=== PATIENT | male | born 1965 | race Caucasian/White ===

== ENCOUNTER 2023-05-14 18:26 | Observation (INO) | payer OTHER ==
[2023-05-14] MEDS ORDERED: ONDANSETRON 4 MG/2 ML VIAL IVP STA ×2 (18:32→20:50)
[2023-05-14] MEDS ORDERED: KETOROLAC 15 MG/ML 1 ML VIAL IVP STA (18:32)
[2023-05-14] MEDS ORDERED: SODIUM CHLORIDE 0.9% 1,000 ML IV STA (18:32)
--- NOTE | 2023-05-14 18:33 | ED ---
Abdominal Pain HPI - General Source: patient Mode of arrival: ambulatory <Sawyer Doan - Last Filed: 05/14/23 18:33> - General Source: RN notes reviewed, old records reviewed <Balta Collins - Last Filed: 05/14/23 21:09> <Chin Matthews John - Last Filed: 05/14/23 23:42> - General Chief Complaint: Abdominal Pain Stated Complaint: Back pain Time Seen by Provider: 05/14/23 18:32 - History of Present Illness Initial Comments: 57-year-old male presents to the ED with a chief complaint of back pain. She states today he started to experience pain of his left back radiating to the front of his abdomen. Denies injury or trauma. Denies urinary symptoms however patient notes history of kidney stones and reports pain seems similar to stones in the past. (Sawyer Doan) This is a 57-year-old male who presents emergency Department with a past medical history significant for kidney stones. Patient states she's had about 5 hours of left CVA tenderness. Patient states he went to another emergency department with the wait was too long so he came to our emergency department. Patient states earlier radiated around to the front of the abdomen but is now just in the back. Patient denies any fever chills per patient denies any vomiting but was nauseous earlier but no longer is nauseated. Patient denies any diarrhea patient denies chest pain difficult breathing shortness of breath (Balta Collins) - Related Data Home Medications Medication Instructions Recorded Confirmed atenoloL [Tenormin] 100 mg PO DAILY 02/25/14 02/28/14 Previous Rx's Medication Instructions Recorded HYDROcodone/APAP 7.5-325MG [[place] 1 each PO Q4H PRN #60 tab 02/28/14 7.5] Allergies Allergy/AdvReac Type Severity Reaction Status Date / Time No Known Allergies Allergy Verified 05/14/23 18:31 Review of Systems ROS Other: All systems not noted in ROS Statement are negative. <Sawyer Doan - Last Filed: 05/14/23 18:33> ROS Other: All systems not noted in ROS Statement are negative. <Balta Collins - Last Filed: 05/14/23 21:09> ROS Other: All systems not noted in ROS Statement are negative. <Chin Matthews - Last Filed: 05/14/23 23:42> ROS Statement: Those systems with pertinent positive or pertinent negative responses have been documented in the HPI. Past Medical History Past Medical History: Hypertension History of Any Multi-Drug Resistant Organisms: None Reported Past Surgical History: Cholecystectomy Additional Past Surgical History / Comment(s): colonoscopies and hemorroid surgery, lithotripsy Past Anesthesia/Blood Transfusion Reactions: No Reported Reaction Past Psychological History: No Psychological Hx Reported Past Alcohol Use History: Occasional Past Drug Use History: None Reported <Sawyer Doan - Last Filed: 05/14/23 18:33> General Exam <Sawyer Doan - Last Filed: 05/14/23 18:33> <Balta Collins - Last Filed: 05/14/23 21:09> - General Exam Comments Initial Comments: Visual Physical Exam Vital signs reviewed General: Well-appearing, nontoxic, no acute distress. Head: Normocephalic, atraumatic Eyes: PERRLA, EOMI ENT: Airway patent Chest: Nonlabored breathing Skin: No visual rash, normal skin tone Neuro: Alert and oriented 3 Musculoskeletal: No gross abnormalities (Sawyer Doan) GENERAL: Patient is well-developed and well-nourished. Patient is nontoxic and well-hydr ated and is moderate distress. ENT: Neck is soft and supple. No significant lymphadenopathy is noted. Oropharynx is clear. Moist mucous membranes. Neck has full range of motion without eliciting any pain. EYES: The sclera were anicteric and conjunctiva were pink and moist. Extraocular movements were intact and pupils were equal round and reactive to light. Eyelids were unremarkable. PULMONARY: Unlabored respirations. Good breath sounds bilaterally. No audible rales rhonchi or wheezing was noted. CARDIOVASCULAR: There is a regular rate and rhythm without any murmurs gallops or rubs. ABDOMEN: Soft and nontender with normal bowel sounds. SKIN: Skin is clear with no lesions or rashes and otherwise unremarkable. NEUROLOGIC: Patient is alert and oriented x3. Cranial nerves II through XII are grossly intact. Motor and sensory are also intact. Normal speech, volume and content. Symmetrical smile. Cerebellar exam grossly intact. MUSCULOSKELETAL: Normal extremities with adequate strength and full range of motion. Patient has left-sided CVA tenderness LYMPHATICS: No significant lymphadenopathy is noted PSYCHIATRIC: Normal psychiatric evaluation. (Balta Collins) Course Vital Signs 05/14/23 18:28 Temperature 98.4 F Pulse Rate 84 Respiratory 18 Rate Blood Pressure 145/95 O2 Sat by Pulse 97 Oximetry Medical Decision Making <Sawyer Doan - Last Filed: 05/14/23 18:33> - Lab Data Result diagrams: 05/14/23 18:56 05/14/23 18:56 <Balta Collins - Last Filed: 05/14/23 21:09> - Lab Data Result diagrams: 05/14/23 18:56 05/14/23 18:56 <Chin Matthews - Last Filed: 05/14/23 23:42> - Medical Decision Making Quicknote portion performed. Signed Sawyer Doan PA-C (Sawyer Doan) Was pt. sent in by a medical professional or institution (HARITHA Paredes, ASSISTANT STORE LEADER, urgent care, hospital, or [facility]...) When possible be specific @ -Dr. Barahona sent the patient in Did you speak to anyone other than the patient for history (EMS, parent, family, police, friend...)? What history was obtained from this source @ -[No] Did you review nursing and triage notes (agree or disagree)? Why? @ -[I reviewed and agree with nursing and triage notes] Were old charts reviewed (outside hosp., previous admission, EMS record, old EKG, old radiological studies, urgent care reports/EKG's, [facility] records)? Report findings @ -[No old charts were reviewed] Differential Diagnosis (chest pain, altered mental status, abdominal pain women, abdominal pain men, vaginal bleeding, weakness, fever, dyspnea, syncope, headache, dizziness, GI bleed, back pain, seizure, CVA, palpatations, mental health, musculoskeletal)? @ -Differential Abdominal Pain Men: Appendicitis, cholecystitis, diverticulosis, ischemic bowel, pancreatitis, hepatitis, UTI, gastroenteritis, AAA, incarcerated hernia, bowel obstruction, constipation, inflammatory bowel, hepatitis, peptic ulcer disease, splenic infarction, perforated viscus, testicular torsion, this is not meant to be an all-inclusive list EKG interpreted by me (3pts min.). @ -[As above] X-rays interpreted by me (1pt min.). @ -[None done] CT interpreted by me (1pt min.). @ -Abdomen pelvis without contrast showed no acute abnormality U/S interpreted by me (1pt. min.). @ -[None done] What testing was considered but not performed or refused? (CT, X-rays, U/S, labs)? Why? @ -[None] What meds were considered but not given or refused? Why? @ -[None] Did you discuss the management of the patient with other professionals (professionals i.e. DrDoug, PA, ASSISTANT STORE LEADER, lab, RT, psych nurse, social media project manager, appointment manager, teacher, navigation officer, case checker)? Give summary @ -[No] Was smoking cessation discussed for >3mins.? @ -[No] Was critical care preformed (if so, how long)? @ -[No] Were there social determinants of health that impacted care today? How? (Homelessness, low income, unemployed, alcoholism, drug addiction, transportation, low edu. Level, literacy, decrease access to med. care, [facility], rehab)? @ -[No] Was there de-escalation of care discussed even if they declined (Discuss DNR or withdrawal of care, Hospice)? DNR status @ -[No] What co-morbidities impacted this encounter? (DM, HTN, Smoking, COPD, CAD, Cancer, CVA, ARF, Chemo, Hep., AIDS, mental health diagnosis, sleep apnea, morbid obesity)? @ -[None] Was patient admitted / discharged? Hospital course, mention meds given and route, prescriptions, significant lab abnormalities, going to OR and other pertinent info. @ -Dr. Matthews will be taking over the care of this patient at 9 PM (Balta Collins) CT of the aorta was pending at the time of sign out this was negative for aortic pathology. Patient continues to have pain as well as nausea and vomiting. H e'll be admitted for further symptom control. I suspect a distal left renal stone. 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 This may be why he does not have hydronephrosis. He will be admitted to Dr. Barahona who is aware with urology on consult. (Chin Matthews) - Lab Data Lab Results 05/14/23 05/14/23 05/14/23 Range/Units 18:56 18:56 18:56 WBC 6.4 (3.8-10.6) k/uL RBC 4.32 (4.30-5.90) m/uL Hgb 14.1 (13.0-17.5) gm/dL Hct 42.6 (39.0-53.0) % MCV 98.6 (80.0-100.0) fL MCH 32.6 (25.0-35.0) pg MCHC 33.0 (31.0-37.0) g/dL RDW 11.5 (11.5-15.5) % Plt Count 370 (150-450) k/uL MPV 7.0 Neutrophils % 44 % Lymphocytes % 42 % Monocytes % 7 % Eosinophils % 3 % Basophils % 1 % Neutrophils # 2.9 (1.3-7.7) k/uL Lymphocytes # 2.7 (1.0-4.8) k/uL Monocytes # 0.5 (0-1.0) k/uL Eosinophils # 0.2 (0-0.7) k/uL Basophils # 0.0 (0-0.2) k/uL Sodium 137 (137-145) mmol/L Potassium 4.3 (3.5-5.1) mmol/L Chloride 107 (98-107) mmol/L Carbon Dioxide 17 L (22-30) mmol/L Anion Gap 13 mmol/L BUN 12 (9-20) mg/dL Creatinine 0.82 (0.66-1.25) mg/dL Est GFR (CKD-EPI)AfAm >90 (>60 ml/min/1.73 sqM) Est GFR (CKD-EPI)NonAf >90 (>60 ml/min/1.73 sqM) Glucose 95 (74-99) mg/dL Calcium 9.3 (8.4-10.2) mg/dL Total Bilirubin 0.4 (0.2-1.3) mg/dL AST 27 (17-59) U/L ALT 19 (4-49) U/L Alkaline Phosphatase 62 (38-126) U/L Total Protein 6.7 (6.3-8.2) g/dL Albumin 4.1 (3.5-5.0) g/dL Amylase 70 (30-110) U/L Lipase 161 (23-300) U/L Urine Color Light Yellow Urine Appearance Clear (Clear) Urine pH 6.0 (5.0-8.0) Ur Specific [place] 1.010 (1.001-1.035) Urine Protein Negative (Negative) Urine Glucose (UA) Negative (Negative) Urine Ketones Negative (Negative) Urine Blood Negative (Negative) Urine Nitrite Negative (Negative) Urine Bilirubin Negative (Negative) Urine Urobilinogen <2.0 (<2.0) mg/dL Ur Leukocyte Esterase Negative (Negative) Blood Type Blood Type Confirm Blood Type Recheck Bld Type Recheck Status Antibody Screen Spec Expiration Date 05/14/23 05/14/23 Range/Units 18:56 19:05 WBC (3.8-10.6) k/uL RBC (4.30-5.90) m/uL Hgb (13.0-17.5) gm/dL Hct (39.0-53.0) % MCV (80.0-100.0) fL MCH (25.0-35.0) pg MCHC (31.0-37.0) g/dL RDW (11.5-15.5) % Plt Count (150-450) k/uL MPV Neutrophils % % Lymphocytes % % Monocytes % % Eosinophils % % Basophils % % Neutrophils # (1.3-7.7) k/uL Lymphocytes # (1.0-4.8) k/uL Monocytes # (0-1.0) k/uL Eosinophils # (0-0.7) k/uL Basophils # (0-0.2) k/uL Sodium (137-145) mmol/L Potassium (3.5-5.1) mmol/L Chloride (98-107) mmol/L Carbon Dioxide (22-30) mmol/L Anion Gap mmol/L BUN (9-20) mg/dL Creatinine (0.66-1.25) mg/dL Est GFR (CKD-EPI)AfAm (>60 ml/min/1.73 sqM) Est GFR (CKD-EPI)NonAf (>60 ml/min/1.73 sqM) Glucose (74-99) mg/dL Calcium (8.4-10.2) mg/dL Total Bilirubin (0.2-1.3) mg/dL AST (17-59) U/L ALT (4-49) U/L Alkaline Phosphatase (38-126) U/L Total Protein (6.3-8.2) g/dL Albumin (3.5-5.0) g/dL Amylase (30-110) U/L Lipase (23-300) U/L Urine Color Urine Appearance (Clear) Urine pH (5.0-8.0) Ur Specific [place] (1.001-1.035) Urine Protein (Negative) Urine Glucose (UA) (Negative) Urine Ketones (Negative) Urine Blood (Negative) Urine Nitrite (Negative) Urine Bilirubin (Negative) Urine Urobilinogen (<2.0) mg/dL Ur Leukocyte Esterase (Negative) Blood Type O Positive Blood Type Confirm O Positive Blood Type Recheck No Previous Record Bld Type Recheck Status CABO Indicated Antibody Screen NEGATIVE Spec Expiration Date 05/17/2023 - 235 Disposition <Sawyer Doan - Last Filed: 05/14/23 18:33> <Balta Collins - Last Filed: 05/14/23 21:09> Is patient prescribed a controlled substance at d/c from ED?: No Time of Disposition: 23:30 <Chin Matthews - Last Filed: 05/14/23 23:42> Clinical Impression: Abdominal pain Disposition: ADMITTED IP TO THIS HOSP Condition: Stable
[2023-05-14 18:36] VITALS: RESP 18
[2023-05-14] MEDS ORDERED: HYDROmorphone 0.5 MG/0.5 ML SYRINGE IVP STA (18:40)
[2023-05-14 19:18] LABS: Basophils % (A) 1 %; Eosinophils # (A) 0.2 k/uL (0-0.7); Eosinophils % (A) 3 %; HCT 42.6 % (39.0-53.0); HGB 14.1 gm/dL (13.0-17.5); Lymphocytes # (A) 2.7 k/uL (1.0-4.8); Lymphocytes % (A) 42 %; MCH 32.6 pg (25.0-35.0); MCV 98.6 fL (80.0-100.0); Monocytes # (A) 0.5 k/uL (0-1.0); Monocytes % (A) 7 %; Neutrophils # (A) 2.9 k/uL (1.3-7.7); Neutrophils % (A) 44 %; Platelet Count 370 k/uL (150-450); RBC 4.32 m/uL (4.30-5.90); RDW 11.5 % (11.5-15.5); WBC 6.4 k/uL (3.8-10.6)
[2023-05-14 19:29] LABS: ALT 19 U/L (4-49); AST 27 U/L (17-59); African American GFR (CKD) >90 (>60 ml/min/1.73 sqM); Albumin 4.1 g/dL (3.5-5.0); Alkaline Phosphatase 62 U/L (38-126); Amylase 70 U/L (30-110); Anion Gap 13 mmol/L; Blood Urea Nitrogen 12 mg/dL (9-20); Calcium 9.3 mg/dL (8.4-10.2); Carbon Dioxide 17 mmol/L (22-30); Chloride 107 mmol/L (98-107); Glucose 95 mg/dL (74-99); Lipase 161 U/L (23-300); Non-African American GFR(CKD) >90 (>60 ml/min/1.73 sqM); Potassium 4.3 mmol/L (3.5-5.1); Sodium 137 mmol/L (137-145); Total Bilirubin 0.4 mg/dL (0.2-1.3); Total Protein 6.7 g/dL (6.3-8.2)
[2023-05-14] MEDS ORDERED: HYDROmorphone 1 MG/ML 1 ML SYRINGE IVP STA (19:31)
--- NOTE | 2023-05-14 19:51 | CT ---
EXAMINATION TYPE: CT abdomen pelvis wo con DATE OF EXAM: 05/14/2023 COMPARISON: None INDICATION: L flank pain r/o stone DLP: 490.4 mGycm, Automated exposure control for dose reduction was used. CONTRAST: 0 mL of Isovue 300. Study performed without Oral Contrast TECHNIQUE: Axial images were obtained from above the diaphragm to the pubic rami in the axial plane a t 5 mm thick sections. Reconstructed images are reviewed on the computer in the coronal plane. FINDINGS: Limited CT sections are obtained the lung bases. The lung bases are clear. CT ABDOMEN: Liver: Normal Spleen: Normal Pancreas: Normal Adrenal glands: The adrenal glands are normal. Gallbladder: Surgically absent Kidneys: No masses are evident. No hydronephrosis is present. No cysts are present. No renal stone s are evident. Aorta: Vascular calcification is within the aorta. Inferior vena cava: Normal. CT PELVIS: Within the anterior left lower pelvis near the inguinal region is a calcified soft tissue density whose could be a calcified lymph node. Loops of bowel within the abdomen and pelvis are normal. This study is without oral contrast limi ting bowel evaluation. Appendix: Normal as visualized. Urinary bladder: Normal. Genitourinary structures: Prostate contains calcification Osseous structures: No suspicious lytic or sclerotic lesions. IMPRESSION: 1. No suspicious renal or ureteral stones. 2. There may be a peripherally calcified lymph node within the anterior left pelvis near the inguinal region of uncertain significance.
[2023-05-14 20:20] LABS: Appearance,Urine Clear (Clear); Color,Urine Light Yellow
[2023-05-14 20:21] LABS: Bilirubin,Urine Negative (Negative); Blood,Urine Negative (Negative); Glucose,Urine (UA) Negative (Negative); Ketones,Urine Negative (Negative); Protein,Urine Negative (Negative)
[2023-05-14 20:22] LABS: Leukocyte Esterase,Urine Negative (Negative); Nitrite,Urine Negative (Negative); Urobilinogen,Urine <2.0 mg/dL (<2.0)
[2023-05-14] MEDS ORDERED: METOCLOPRAMIDE 5 MG/ML 2 ML VIAL IVP STA (21:21)
[2023-05-14] MEDS ORDERED: HYDROmorphone 0.5 MG/0.5 ML SYRINGE IVP PRN (22:43)
[2023-05-14] MEDS ORDERED: HYDROmorphone 1 MG/ML 1 ML SYRINGE IVP PRN (22:43)
[2023-05-14] MEDS ORDERED: NALOXONE 0.4 MG/ML 1 ML VIAL IV PRN (22:43)
[2023-05-14] MEDS ORDERED: ONDANSETRON 4 MG/2 ML VIAL IVP PRN (22:43)
[2023-05-14] MEDS ORDERED: SODIUM CHLORIDE 0.9% 1,000 ML IV SCH (22:45)
--- NOTE | 2023-05-14 23:37 | CT ---
EXAMINATION TYPE: CT angio thor/abd pel aorta CT DLP: 1291.4 mGycm, Automated exposure control for dose reduction was used. DATE OF EXAM: 05/14/2023 9:22 PM COMPARISON: . CLINICAL INDICATION:Male, 57 years old with history of Flank pain; PHH, Flank pain. Nausea. No renal stones on prior, is investigating further. TECHNIQUE: Dissection protocol: Multiple axial CT images of the chest, abdomen, and pelvis were obtai liv prior and to the administration of IV contrast. 3-D reformats and maximum intensity projection fo rmat were performed on a separate workstation. Contrast used:100 ml mL of Isovue 370 with IV Contrast, Oral contrast used: None. FINDINGS: ARTERIAL VASCULATURE: The thoracic aorta is normal in course and caliber. There is no evidence of aor tic dissection, aneurysm or acute aortic injury. Great arch vessels patent and normal in course and c aliber. PULMONARY ARTERIAL VASCULATURE: Normal caliber. No evidence of filling defect to suggest pulmonary em bolus. VENOUS SYSTEM: Unremarkable. Lungs/pleura: The lung parenchyma appears unremarkable. Heart: Within normal limits. Mediastinum: No gross evidence of adenopathy. Lower Neck: No significant findings. Abdomen: Liver: Unremarkable. Gallbladder and Bile ducts: Unremarkable. Pancreas: Unremarkable. Spleen: Unremarkable. Adrenal glands: Unremarkable. Kidneys and Ureters: Unremarkable. No hydronephrosis. Bladder: Unremarkable. Reproductive: Unremarkable. Stomach and Bowel: Unremarkable. No evidence of bowel obstruction. Peritoneum: No evidence of pneumoperitoneum, free fluid, or adenopathy. Musculoskeletal: The osseous structures appear intact. Lymph nodes: No evidence of lymphadenopathy. Abdominal wall/soft tissues: Unremarkable. IMPRESSION: 1. No evidence for thoracic aortic dissection.
[2023-05-15 08:21] VITALS: BP 143/83; PULSE 84; TEMP 98.2
[2023-05-15] MEDS ORDERED: TAMSULOSIN 0.4 MG CAP.ER.24H PO SCH (08:30)
--- NOTE | 2023-05-15 08:35 | P.HPIM ---
History of Present Illness H&P Date: 05/15/23 Chief Complaint: left flank pain 57-year-old male well-known to myself presented to the hospital emergency room with left flank pain consistent with renal calculi patient has passed many stones approximately one a year since 28 years of age, he has been worked up in the past for hyperparathyroidism no findings in the past. Significant left flank sharp pain with nausea and vomiting and difficulty urinating no known history of prostate disease, past history of essential hypertension and is currently taking Tenormin and lisinopril. No medical allergies other complaints Review of Systems Constitutional: Reports malaise Ears, nose, mouth and throat: Reports as per HPI Cardiovascular: Reports high blood pressure Respiratory: Reports as per HPI (smoker) Gastrointestinal: Reports as per HPI, Reports nausea, Reports vomiting Genitourinary: Reports as per HPI, Reports flank pain, Reports kidney stones Musculoskeletal: Reports as per HPI Integumentary: Reports as per HPI Neurological: Reports as per HPI Psychiatric: Reports as per HPI (daily alcohol consumption) Past Medical History Past Medical History: Hypertension Additional Past Medical History / Comment(s): regular renal calculi patient states he passes a kidney stone yearly History of Any Multi-Drug Resistant Organisms: None Reported Past Surgical History: Cholecystectomy Additional Past Surgical History / Comment(s): colonoscopies and hemorroid surgery Past Anesthesia/Blood Transfusion Reactions: No Reported Reaction Past Psychological History: No Psychological Hx Reported Smoking Status: Current some day smoker Past Alcohol Use History: Occasional Past Drug Use History: None Reported Medications and Allergies Home Medications Medication Instructions Recorded Confirmed Type Pantoprazole [Protonix] 40 mg PO Q3D 05/15/23 05/15/23 History atenoloL [Tenormin] 50 mg PO BID@0300,1500 05/15/23 05/15/23 History lisinopriL [Zestril] 10 mg PO BID@0300,1500 05/15/23 05/15/23 History Allergies Allergy/AdvReac Type Severity Reaction Status Date / Time No Known Allergies Allergy Verified 05/15/23 07:19 Physical Exam Osteopathic Statement: *. No significant issues noted on an osteopathic structural exam other than those noted in the History and Physical/Consult. Vitals: Vital Signs Temp Pulse Pulse Resp BP BP Pulse Ox 05/15/23 07:00 98.2 F 84 18 143/83 99 05/15/23 06:00 98.4 F 88 18 122/80 05/15/23 05:00 88 122/80 05/15/23 04:00 86 114/69 05/15/23 03:00 97.9 F 78 18 114/69 96 05/15/23 02:00 98.6 F 86 18 118/79 94 L 05/15/23 01:56 86 18 118/79 94 L 05/14/23 18:28 98.4 F 84 18 145/95 97 Intake and Output 05/14/23 05/15/23 05/15/23 22:59 06:59 14:59 Other: # Voids 0 Weight 70.307 kg 70.307 kg General: [Patient awake, alert and oriented times 3. Patient in no acute distress.] HEENT: [PERRL. EOMI. No pharyngeal erythema or exudate.] Neck: [No adenopathy.] Cardiac: [Heart regular in rate and rhythm. No S3. No S4. No clicks, rubs. No murmur.] Lungs: [Clear to auscultation bilaterally.] Abdomen: [No mass. No organomegaly. Bowel sounds presnt and normoactive in all 4 quadrants. left flank pain Extremes: [No edema no cyanosis no claudication normal pulses] : male genitalia Musculoskeletal: [No joint erythema, edema or tenderness.] Skin: [No rash.] Neurologic: [No lateralizing deficits. CN II - XII grossly intact.] Lymphatic: [No adenopathy.] Results CBC & Chem 7: 05/14/23 18:56 05/14/23 18:56 Labs: Abnormal Lab Results - Last 24 Hours (Table) 05/14/23 Range/Units 18:56 Carbon Dioxide 17 L (22-30) mmol/L Thrombosis Risk Factor Assmnt - Choose All That Apply Each Factor Represents 1 point: Age 41-60 years Each Risk Factor Represents 3 Points: Family history of DVT/PE Thrombosis Risk Factor Assessment Total Risk Factor Score: 4 Thrombosis Risk Factor Assessment Level: Moderate Risk Assessment and Plan (1) Abdominal pain Current Visit: Yes Status: Acute Code(s): R10.9 - UNSPECIFIED ABDOMINAL PAIN SNOMED Code(s): 20215644 (2) Left flank pain Current Visit: Yes Status: Acute Code(s): R10.9 - UNSPECIFIED ABDOMINAL PAIN SNOMED Code(s): 083560638 Plan: possible renal calculi left flank pain Urology referral Pain management
[2023-05-15] MEDS ORDERED: LORazepam 2 MG/ML INJ IV PRN ×3 (09:14)
[2023-05-15] MEDS ORDERED: THIAMINE 100 MG/ML 2 ML VIAL IM STA (09:14)
[2023-05-15] MEDS ORDERED: ACETAMINOPHEN IV (For NPO) 1,000 MG in EMPTY BAG 1 BAG IVPB PRN (09:19)
[2023-05-15] MEDS ORDERED: PANTOPRAZOLE 40 MG/10 ML VIAL IVP SCH (09:30)
[2023-05-15] MEDS ORDERED: KETOROLAC 15 MG/ML 1 ML VIAL IVP STA (11:13)
--- NOTE | 2023-05-15 12:24 | P.GSCN ---
History of Present Illness Consult date: 05/15/23 Reason for Consult: Left flank pain, previous history of kidney stones History of present illness: This is a 57-year-old male that presented to the hospital with the onset left sided flank pain. He does have history of recurrent kidney stones and did require surgical intervention with stone basketing approximately 20 years ago. He indicates the pain is mainly along the left flank and left lower back, no radiation of the pain. Denies any nausea or vomiting, but he did start experiencing nausea and vomiting after he received Dilaudid. Denies any fevers or chills. Denies any dysuria or gross hematuria. He underwent a CT abdomen and pelvis in the ER which showed no evidence of hydronephrosis or any ureteral or renal stones. His urinalysis is within normal limits. Review of Systems - Constitutional Denies fever, Denies weight loss - EENT Ears, nose, mouth and throat: Denies dysphagia - Cardiovascular Denies chest pain, Denies shortness of breath - Respiratory Denies cough, Denies 7 - Gastrointestinal Reports nausea, Reports vomiting, Denies abdominal pain - Genitourinary Reports flank pain, Denies dysuria, Denies hematuria - Integumentary Denies rash, Denies unusual bruising - Neurological Denies headaches, Denies syncope Past Medical History Past Medical History: Hypertension Additional Past Medical History / Comment(s): regular renal calculi patient states he passes a kidney stone yearly History of Any Multi-Drug Resistant Organisms: None Reported Past Surgical History: Cholecystectomy Additional Past Surgical History / Comment(s): colonoscopies and hemorroid surgery Past Anesthesia/Blood Transfusion Reactions: No Reported Reaction Past Psychological History: No Psychological Hx Reported Smoking Status: Current some day smoker Past Alcohol Use History: Occasional Past Drug Use History: None Reported Medications and Allergies Home Medications Medication Instructions Recorded Confirmed Type Ketorolac [Toradol] 10 mg PO Q6HR #15 tab 05/15/23 Rx Pantoprazole [Protonix] 40 mg PO Q3D 05/15/23 05/15/23 History atenoloL [Tenormin] 50 mg PO BID@0300,1500 05/15/23 05/15/23 History lisinopriL [Zestril] 10 mg PO BID@0300,1500 05/15/23 05/15/23 History Allergies Allergy/AdvReac Type Severity Reaction Status Date / Time No Known Allergies Allergy Verified 05/15/23 07:19 Surgical - Exam Vital Signs Temp Pulse Resp BP Pulse Ox 98.4 F 84 18 145/95 97 05/14/23 18:28 05/14/23 18:28 05/14/23 18:28 05/14/23 18:28 05/14/23 18:28 - General no distress, moderate pain - Eyes normal ocular movement, no pale - ENT normal nares, normal mucosa - Respiratory normal expansion, normal respiratory effort - Abdomen Abdomen: soft, non tender, tender (Left CVA tenderness) - Psychiatric oriented to time, oriented to person, oriented to place Results - Labs 05/14/23 18:56 05/14/23 18:56 Abnormal Lab Results - Last 24 Hours (Table) 05/14/23 Range/Units 18:56 Carbon Dioxide 17 L (22-30) mmol/L Diabetes panel 05/14/23 Range/Units 18:56 Sodium 137 (137-145) mmol/L Potassium 4.3 (3.5-5.1) mmol/L Chloride 107 (98-107) mmol/L Carbon Dioxide 17 L (22-30) mmol/L BUN 12 (9-20) mg/dL Creatinine 0.82 (0.66-1.25) mg/dL Glucose 95 (74-99) mg/dL Calcium 9.3 (8.4-10.2) mg/dL AST 27 (17-59) U/L ALT 19 (4-49) U/L Alkaline Phosphatase 62 (38-126) U/L Total Protein 6.7 (6.3-8.2) g/dL Albumin 4.1 (3.5-5.0) g/dL Calcium panel 05/14/23 Range/Units 18:56 Calcium 9.3 (8.4-10.2) mg/dL Albumin 4.1 (3.5-5.0) g/dL Pituitary panel 05/14/23 Range/Units 18:56 Sodium 137 (137-145) mmol/L Potassium 4.3 (3.5-5.1) mmol/L Chloride 107 (98-107) mmol/L Carbon Dioxide 17 L (22-30) mmol/L BUN 12 (9-20) mg/dL Creatinine 0.82 (0.66-1.25) mg/dL Glucose 95 (74-99) mg/dL Calcium 9.3 (8.4-10.2) mg/dL Adrenal panel 05/14/23 Range/Units 18:56 Sodium 137 (137-145) mmol/L Potassium 4.3 (3.5-5.1) mmol/L Chloride 107 (98-107) mmol/L Carbon Dioxide 17 L (22-30) mmol/L BUN 12 (9-20) mg/dL Creatinine 0.82 (0.66-1.25) mg/dL Glucose 95 (74-99) mg/dL Calcium 9.3 (8.4-10.2) mg/dL Total Bilirubin 0.4 (0.2-1.3) mg/dL AST 27 (17-59) U/L ALT 19 (4-49) U/L Alkaline Phosphatase 62 (38-126) U/L Total Protein 6.7 (6.3-8.2) g/dL Albumin 4.1 (3.5-5.0) g/dL Assessment and Plan Assessment: 57-year-old male presents with left flank pain, review the CT I don't see any evidence of hydronephrosis or any ureteral stones, I was able to follow the ureter all the way down to the bladder no evidence of obstruction. From urology standpoint no evidence of kidney stones to explain for Patient's pain. Advice using Toradol for pain given his nausea and vomiting from dilaudid
[2023-05-15] MEDS ORDERED: atenoloL 50 MG TAB PO SCH (15:00)
--- NOTE | 2023-05-15 15:13 | P.DS ---
Providers Date of admission: 05/14/23 22:43 Expected date of discharge: 05/15/23 Attending physician: Fahad Barahona Consults: 05/14/23 22:43 Consult Physician Routine Consulting Provider: Krishna Matthews Consult Reason/Comments: flank pain Do you want consulting provider notified?: Yes Primary care physician: [facility] Course: Final Diagnoses: (1) Abdominal pain Current Visit: Yes Status: Acute Code(s): R10.9 - UNSPECIFIED ABDOMINAL PAIN SNOMED Code(s): 78705498 (2) Left flank pain Current Visit: Yes Status: Acute Code(s): R10.9 - UNSPECIFIED ABDOMINAL PAIN SNOMED Code(s): 277116385 Hospital course:H&P Date: 05/15/23 Chief Complaint: left flank pain 57-year-old male well-known to myself presented to the hospital emergency room with left flank pain consistent with renal calculi patient has passed many stones approximately one a year since 28 years of age, he has been worked up in the past for hyperparathyroidism no findings in the past. Significant left flank sharp pain with nausea and vomiting and difficulty urinating no known history of prostate disease, past history of essential hypertension and is currently taking Tenormin and lisinopril. No medical allergies other complaints Evaluated by urology, abdominal/pelvis CT with reviewed-no evidence of hydronephrosis or any ureteral or renal stones.,UA within normal limits, recommending Toradol for pain. Pain better controlled with Toradol. No further nausea vomiting. Denies chest pain, palpitations or shortness of breath. Cleared by urology for discharge. Patient is eager for discharge. Patient will be discharged home today in a stable condition with guarded prognosis. The impression and plan of care has been dictated as directed. : I performed a history and examination of this patient, discussed the same with the dictator. I agree with the dictator's note ,documented as a scribe. Any additional findings or plans will be noted. Patient Condition at Discharge: Stable Plan - Discharge Summary Discharge Rx Participant: Yes New Discharge Prescriptions: New Ketorolac [Toradol] 10 mg PO Q6HR #15 tab No Action atenoloL [Tenormin] 50 mg PO BID@0300,1500 Pantoprazole [Protonix] 40 mg PO Q3D lisinopriL [Zestril] 10 mg PO BID@0300,1500 Discharge Medication List Ketorolac [Toradol] 10 mg PO Q6HR #15 tab 05/15/23 [Rx] Pantoprazole [Protonix] 40 mg PO Q3D 05/15/23 [History] atenoloL [Tenormin] 50 mg PO BID@0300,1500 05/15/23 [History] lisinopriL [Zestril] 10 mg PO BID@0300,1500 05/15/23 [History] Follow up Appointment(s)/Referral(s): Fahad Barahona Jr, DO [Primary Care Provider] - 1-2 days Patient Instructions/Handouts: Flank Pain (ED) Discharge Disposition: HOME SELF-CARE
[2023-05-16] MEDS ORDERED: THIAMINE 100 MG TAB PO SCH (09:00)
[2023-05-16] MEDS ORDERED: MULTIVITAMINS, THERA 1 EACH TAB PO SCH (09:00)
[2023-05-16] MEDS ORDERED: FOLIC ACID 1 MG TAB PO SCH (09:00)
== END 2023-05-15 12:57 | disposition home or self-care (01) ==
LOC: EC 18:26 → 6NMEDSUR 22:43
PROVIDERS: ADMIT Family Medicine; ATTEND Family Medicine
DX: R10.9 Unspecified abdominal pain (principal); I10 Essential (primary) hypertension; F17.200 Nicotine dependence, unspecified, uncomplicated; Z90.49 Acquired absence of other specified parts of digestive tract; Z79.899 Other long term (current) drug therapy; Z87.442 Personal history of urinary calculi
CPT/HCPCS: 96376 ×3; 96372; 96375 ×2; 96361; 96374; 99285; 36415; 86900; 86901; 80053; 82150; 83690; 83735; 85025; 86850; 81003; 83970; 71275; 74176; 74174; G0378 ×2; J2765; J3411; J2405 ×2; J1170 ×3; J0131; J1885 ×2; C9113; Q9967